=== PATIENT | male | born 1970 | race Asian ===

== ENCOUNTER 2020-06-28 23:50 | Inpatient (IN) | payer OTHER ==
[~2020-06-28] VITALS: Ht 175.3 cm; Wt 130.0 kg
[2020-06-29] VITALS (7 sets, daily range): BP systolic 109–147; BP diastolic 61–106
[2020-06-29] MEDS ORDERED: SODIUM CHLORIDE FLUSH 10ML SYR IVF ONE ×2 (00:30→01:00)
[2020-06-29] MEDS ORDERED: NITROGLYCERIN OINT 2%, 1GM TP ONE ×2 (00:30→00:32)
[2020-06-29] MEDS ORDERED: LABETALOL 5MG/ML, 20ML IVPush ONE (00:30)
[2020-06-29] MEDS ORDERED: LABETALOL 20 MG/4 ML ONE (00:32)
[2020-06-29 00:33] LABS: BASOPHILS % (AUTO) 1 % (0-1); EOSINOPHILS % (AUTO) 2 % (1-7); LYMPHOCYTES % (AUTO) 24 % (22-44); MD NO; MEAN CORPUSCULAR HEMOGLOBIN 29.8 pg (27.5-34.5); MEAN CORPUSCULAR HGB CONC 33.7 g/dL (33.2-36.2); MEAN PLATELET VOLUME 8.4 fL (7.4-10.4); MONOCYTES % (AUTO) 10 % (2-9); NEUTROPHILS % (AUTO) 63 % (42-75); PLATELET COUNT 195 x10^3/uL (130-400); RED BLOOD COUNT 5.38 x10^6/uL (4.38-5.82); RED CELL DISTRIBUTION WIDTH 13.9 % (9.4-14.8)
--- NOTE | 2020-06-29 00:41 | NUR ---
BP prior to labetalol admin 179/104 HR 84, s/p admin 171/99 HR 87. Admin nitro paste x1 per provider order. BP s/p nitro x1 156/94 HR 81. Remains on tele/continuous O2 monitoring
[2020-06-29 00:45] LABS: ANION GAP 3 mmol/L (5-15); CALCIUM 8.7 mg/dL (8.5-10.1); CHLORIDE 106 mmol/L (98-107); CREATININE 1.25 mg/dL (0.7-1.3)
[2020-06-29 00:46] LABS: ALANINE AMINOTRANSFERASE 27 U/L (12-78); ALBUMIN 3.7 g/dL (3.4-5.0)
[2020-06-29 00:50] LABS: TROPONIN I 0.115 ng/mL (0.000-0.045)
[2020-06-29 00:51] LABS: ALKALINE PHOSPHATASE 92 U/L (45-117); BILIRUBIN,TOTAL 0.6 mg/dL (0.2-1.0); TOTAL PROTEIN 8.3 g/dL (6.4-8.2)
[2020-06-29] MEDS ORDERED: FUROSEMIDE 40 MG/4 ML IVPush ONE (01:00)
[2020-06-29] MEDS ORDERED: ASPIRIN 81 MG TABLET CHEW PO ONE (01:00)
[2020-06-29] MEDS ORDERED: ASPIRIN 81 MG TABLET CHEW ONE (01:17)
[2020-06-29] MEDS ORDERED: FUROSEMIDE 20 MG/2 ML ONE ×2 (01:18→01:19)
--- NOTE | 2020-06-29 01:20 | NUR ---
Pt reports unchanged sx. Remains on continuous tele/O2. NSR noted on monitor. Pt verbalizes understanding of reporting any change in sx to RN. Bed low, side rails up, call dupree within reach
[2020-06-29 01:28] LABS: INTERNATIONAL NORMALIZED RATIO 1.01 (0.93-1.1); PROTHROMBIN TIME 10.7 Seconds (9.6-11.5)
--- NOTE | 2020-06-29 02:09 | NUR ---
covering primary rn elaina for break. vs updated, pt has no complaints at this time other than feelig tired. remains stable, will continue to monitor.
[2020-06-29] MEDS ORDERED: ONDANSETRON 2MG/ML, 2ML IVPush PRN (03:00)
[2020-06-29] MEDS ORDERED: ACETAMINOPHEN 325 MG TABLET PO PRN (03:00)
[2020-06-29] MEDS ORDERED: morphine SULFATE 10 MG/ML, 1ML IVPush PRN (03:00)
[2020-06-29] MEDS ORDERED: GUAIFENESIN/DM 200-20MG, 10ML UDC PO PRN (03:00)
[2020-06-29] MEDS ORDERED: METHOCARBAMOL 500 MG TABLET PO PRN (03:00)
[2020-06-29] MEDS ORDERED: ENOXAPARIN 40 MG/0.4 ML SQ SCH (03:00)
[2020-06-29] MEDS ORDERED: NITROGLYCERIN 0.4 MG/SPRAY SL PRN (03:00)
[2020-06-29] MEDS ORDERED: NITROGLYCERIN 0.4 MG BOTTLE (25 TABS) SL PRN (03:00)
[2020-06-29] MEDS ORDERED: ZOLPIDEM 5MG TABLET PO PRN (03:00)
[2020-06-29] MEDS ORDERED: DOCUSATE 100 MG CAPSULE PO PRN (03:00)
[2020-06-29] MEDS ORDERED: HYDROcodone/APAP 5/325 TABLET PO PRN (03:00)
--- NOTE | 2020-06-29 03:20 | NUR ---
Report given to Rizwan MICHAELS
[2020-06-29] MEDS ORDERED: LISI-167 PO (04:08)
[2020-06-29] MEDS ORDERED: LISI1TAB23 PO (04:28)
[2020-06-29 05:16] LABS: TROPONIN I 0.103 ng/mL (0.000-0.045)
[2020-06-29] MEDS ORDERED: FLU VACCINE PER PHARMACY IM ONE (06:00)
[2020-06-29] MEDS ORDERED: FLU VACC QS2020-21(6MOS UP)/PF 60MCG/0.5 ML SYR IM-VACC ONE (06:30)
[2020-06-29] MEDS ORDERED: FAMOTIDINE 40 MG TABLET ONE ×2 (08:19→20:30)
[2020-06-29] MEDS: FUROSEMIDE 40 MG/4 ML IV SCH ×2 (08:44→18:08)
[2020-06-29] MEDS: LISINOPRIL 20 MG TABLET PO SCH (08:44)
[2020-06-29] MEDS: FAMOTIDINE 20 MG TABLET PO SCH ×2 (08:45→20:35)
[2020-06-29 11:19] LABS: TROPONIN I 0.092 ng/mL (0.000-0.045)
[2020-06-29] MEDS ORDERED: HEPARIN 5,000 UNITS/ML, 1ML IV PRN (11:30)
[2020-06-29] MEDS ORDERED: HEPARIN 5,000 UNITS/ML, 1ML IV ONE (11:30)
[2020-06-29] MEDS: HEPARIN 25,000 UNITS/250ML PMX 250 ML IV PRN (13:20)
[2020-06-29] MEDS ORDERED: PROPOFOL 10 MG/ML, 50ML ONE (13:39)
[2020-06-29] MEDS ORDERED: AMIODARONE 150 MG in DEXTROSE 5% 100 ML IV ONE (14:30)
[2020-06-29] MEDS ORDERED: FILTER 0.22 MICRON IV PRN (14:30)
[2020-06-29] MEDS: AMIODARONE 450 MG in DEXTROSE 5% 241 ML IV PRN ×2 (15:10→21:00)
[2020-06-29] MEDS: LABETALOL 5MG/ML, 20ML IVPush PRN (21:09)
[2020-06-30 00:42] VITALS: BP 167/110
[2020-06-30] MEDS: LABETALOL 5MG/ML, 20ML IVPush PRN (00:51)
[2020-06-30] MEDS: HEPARIN 25,000 UNITS/250ML PMX 250 ML IV PRN (01:52)
[2020-06-30 07:32] LABS: BASOPHILS % (AUTO) 1 % (0-1); EOSINOPHILS % (AUTO) 3 % (1-7); LYMPHOCYTES % (AUTO) 18 % (22-44); MEAN CORPUSCULAR HEMOGLOBIN 30.2 pg (27.5-34.5); MEAN CORPUSCULAR HGB CONC 33.5 g/dL (33.2-36.2); MEAN PLATELET VOLUME 8.2 fL (7.4-10.4); MONOCYTES % (AUTO) 11 % (2-9); NEUTROPHILS % (AUTO) 67 % (42-75); PLATELET COUNT 187 x10^3/uL (130-400); RED BLOOD COUNT 5.21 x10^6/uL (4.38-5.82); RED CELL DISTRIBUTION WIDTH 13.7 % (9.4-14.8)
[2020-06-30 07:40] LABS: MD NO
[2020-06-30 07:47] LABS: ANION GAP 3 mmol/L (5-15); CALCIUM 8.7 mg/dL (8.5-10.1); CHLORIDE 106 mmol/L (98-107); CHOLESTEROL, TOTAL 179 mg/dL (140-239); CREATININE 1.05 mg/dL (0.7-1.3); TRIGLYCERIDES 124 mg/dL (50-200); VLDL CHOLESTEROL 25 mg/dL (0-25)
[2020-06-30 07:49] LABS: CHOL/HDL RATIO 3.4; HDL CHOL % 30 % (26-37); HDL CHOLESTEROL (DIRECT) 53 mg/dL (40-60); LDL CHOLESTEROL,CALCULATED 101 mg/dL (54-169); LDL/HDL RATIO 1.9 (0.5-3.0)
[2020-06-30] MEDS ORDERED: REGADENOSON 0.4 MG/5 ML SYRINGE ONE (08:28)
[2020-06-30] MEDS ORDERED: FAMOTIDINE 40 MG TABLET ONE (08:34)
[2020-06-30] MEDS ORDERED: METOPROLOL TARTRATE 25 MG TAB PO SCH (09:00)
[2020-06-30 10:10] VITALS: BP 144/83
[2020-06-30 10:14] VITALS: BP 124/85
[2020-06-30] MEDS ORDERED: AMIODARONE 200 MG TABLET PO SCH (10:30)
[2020-06-30] MEDS ORDERED: APIXABAN 5 MG TABLET PO SCH (10:30)
[2020-06-30] MEDS: FUROSEMIDE 40 MG/4 ML IV SCH (10:51)
[2020-06-30] MEDS: FAMOTIDINE 20 MG TABLET PO SCH (10:52)
[2020-06-30] MEDS: LISINOPRIL 20 MG TABLET PO SCH (10:52)
[2020-06-30] MEDS ORDERED: POTASSIUM CHLORIDE 20 MEQ TAB.ER.PRT PO ONE (11:00)
[2020-06-30] MEDS ORDERED: AMIO200T42 PO (13:25)
[2020-06-30] MEDS ORDERED: APIX5TAB PO (13:25)
[2020-06-30 13:30] VITALS: BP 119/77
== END 2020-06-30 15:15 | disposition home or self-care (01) | DRG 280 ==
LOC: ED 23:59 → EDIP 06-29 01:45 → 5SO 06-29 03:31 → DCLOUNGE 06-30 15:01
PROVIDERS: ADMIT Internal Medicine; ATTEND Hospitalist
PROC: 5A2204Z Restoration of Cardiac Rhythm, Single (ICD-10-PCS; principal; 2020-06-29 13:30)
DX: I21.A1 Myocardial infarction type 2 (principal); I50.31 Acute diastolic (congestive) heart failure; N17.0 Acute kidney failure with tubular necrosis; I16.1 Hypertensive emergency; Z68.41 Body mass index [BMI] 40.0-44.9, adult; E66.01 Morbid (severe) obesity due to excess calories; G47.33 Obstructive sleep apnea (adult) (pediatric); I11.0 Hypertensive heart disease with heart failure; I48.91 Unspecified atrial fibrillation; Z87.891 Personal history of nicotine dependence; Z88.0 Allergy status to penicillin
CPT/HCPCS: 36415; 71045; 78452; 80048; 80053; 80061; 83735; 83880; 84100; 84443; 84484; 85025; 85520; 85610; 85730; 90686; 93005; 93017; 93306; 93312; 93321; 93325; G0378; J1644; J1650; J1940; J2704; J2785; J7060; A9502; C9898; J0282